=== PATIENT | male | born 1990 | race Caucasian/White ===

== ENCOUNTER 2017-12-06 12:54 | Emergency (ER) | payer MEDICAID ==
[~2017-12-06] VITALS: Ht 175.3 cm; Wt 69.8 kg
[2017-12-06 13:09] VITALS: Ht 175.3 cm; Wt 69.8 kg
[2017-12-06 15:42] LABS: BASOPHIL % 0.4 % (0-2); PLATELET COUNT 257 x10^3mcL (130-400); RED CELL DISTRIBUTION WIDTH 12.8 % (11.5-14.5)
[2017-12-06 15:50] LABS: CALCIUM 9.3 mg/dL (8.5-10.1); CHLORIDE SERUM 106 mmol/L (98-107); CREATININE SERUM 0.7 mg/dL (0.7-1.3); GFR1 > 60 mL/min; GLUCOSE SERUM 92 mg/dL (74-106); POTASSIUM SERUM 3.8 mmol/L (3.5-5.1); SODIUM SERUM 143 mmol/L (136-145)
[2017-12-06 15:54] LABS: ALBUMIN 4.4 g/dL (3.4-5.0); ALKALINE PHOSPHATASE 68 U/L (46-116); ALT/SGPT 22 U/L (16-63); AST/SGOT 12 U/L (15-37); CHOLESTEROL 139 mg/dL (<200); TOTAL PROTEIN, SERUM 7.8 g/dL (6.4-8.2)
[2017-12-06 16:40] LABS: AMPHETAMINE QUAL UR NONE DETECTED (See below)
[2017-12-06 18:10] VITALS: BP 131/79
== END 2017-12-06 18:10 | disposition home or self-care (01) ==
LOC: ED 12:54
PROVIDERS: Emergency Medicine
DX: R06.4 Hyperventilation (principal)
CPT/HCPCS: 36415; 36600; G0480